=== PATIENT | female | born 1990 | race Caucasian/White ===

== ENCOUNTER 2016-12-12 19:21 | Observation (INO) ==
[2016-12-12 19:56] LABS: Bilirubin,Urine Moderate (Negative); Blood,Urine Moderate (Negative); Clarity,Urine Cloudy (Clear); Color,Urine Orange (Yellow); Glucose,Urine (UA) Normal (Normal); Ketones,Urine Negative (Negative); Leukocyte Esterase,Urine Large (Negative); Nitrite,Urine Negative (Negative); PH,Urine 6.5 pH Units (5.0-8.0); Protein,Urine Negative (Neg-Trace); Specific Gravity,Urine 1.023 (1.010-1.025); Urobilinogen,Urine Normal (Normal)
[2016-12-12 19:58] LABS: Bacteria,Urine Moderate per hpf (None-Few); Hyaline Casts,Urine Few per lpf (None-Few); Squamous Epithelial Cell,Urine Many per lpf (None-Few); WBC,Urine 50-100 per hpf (0-3)
[2016-12-12] MEDS ORDERED: Ketorolac 60 MG/2 ML VIAL IM ONE (20:00)
--- NOTE | 2016-12-12 20:06 | Emergency Department Note ---
Disposition Clinical Impression: Calculus of common bile duct and gallbladder, Total bilirubin, elevated Disposition: Home, Self-Care Condition: Fair Referrals: Bennie Arthur, PAC [Primary Care Provider] - Forms: ED Satisfaction Letter Time of Disposition: 22:15 Abdominal Pain HPI - General Chief Complaint: ED Abdominal Pain Stated Complaint: abd/ back pain Time Seen by Provider: 12/12/16 19:47 Source: patient, family Mode of arrival: private vehicle Limitations: no limitations Nursing Notes Reviewed: Yes Vital Signs Reviewed: Yes - History of Present Illness Pt Subjective Complaint: abdominal pain Onset (ago): hour(s) (Started yesterday) Consistency: constant Location: epigastric (Patient points to the xiphoid process and lower sternum as the location) Pain Severity: moderate Pain Scale: 7 Quality: sharp Radiation: back Migration to: no migration Improves with: nothing Worsens with: other (Deep breaths and movements of the torso dramatically increased the discomfort.) Associated symptoms: Reports: denies other symptoms Treatments prior to arrival: none - Related Data Allergies Allergy/AdvReac Type Severity Reaction Status Date / Time No Known Allergies Allergy Verified 12/12/16 19:29 All systems ED: reviewed and negative except as stated. Constitutional: Denies: fever, chills ENT ED: Denies: ear pain, throat pain, congestion Cardiovascular: Reports: chest pain. Denies: palpitations, dyspnea on exertion Respiratory: Denies: cough, dyspnea Gastrointestinal: Denies: nausea, vomiting, diarrhea Genitourinary: Denies: urgency, dysuria, frequency Musculoskeletal: Reports: back pain Neurological: Denies: headache Abdominal Pain PMH - Past Medical History Medical history: Reports: no medical history Female Surgical History: Reports: other (Patient had a sternotomy for repair of a hole in the heart as a child) Psychiatric history: Reports: no psych history - Social History Smoking status: Never smoker Alcohol use: Reports: none Drug use: Reports: none Physical Exam - General Limitations: no limitations General appearance: alert, in no apparent distress - Head Head exam: atraumatic, normocephalic - Eye Eye exam: Present: normal appearance, PERRL - ENT ENT exam: normal exam, mucous membranes moist, normal external ear exam - Neck Neck exam: Present: normal inspection, full ROM, trachea midline - Chest Chest inspection: Present: normal inspection, symmetric chest wall rise, tenderness (There is tenderness to palpation over the xiphoid process as well as the inferior costal margins bilaterally outward to about the mammary line) - Respiratory Respiratory exam: Present: normal lung sounds bilaterally. Absent: respiratory distress, wheezes - Cardiovascular Cardiovascular exam: Present: regular rate, normal rhythm, normal heart sounds - Abdominal Exam Abdominal exam: Present: soft, Non-Tender, normal bowel sounds - Extremities Exam Extremities exam: Present: normal inspection, full ROM. Absent: pedal edema - Back Exam Back exam: Present: full ROM, tenderness (There is tenderness palpation over the lowest costal spinal junctions bilaterally) - Neurological Exam Neurological exam: Present: alert, oriented X3 - Psychiatric Psychiatric exam: Present: normal affect, normal mood - Skin Skin exam: Present: warm, dry. Absent: rash Course Course Narrative: Patient presents with what she is calling abdominal pain but is actually xiphoid process pain. I think this is really musculoskeletal given the focal tenderness, reproducibility with deep breath and movement of the torso, and tenderness to palpation. The belly exam is completely nontender and benign. However her urine is orange. She denies taking any Pyridium or other agents that might discolor the urine. Because of the atypical urine I am going to do a bit of a workup. I will give her some pain medications and we will check labs and the urinalysis. Disposition will be based on diagnostic results and reevaluation. - Reevaluation(s) Reevaluation #1: That discolored urine turned out to be positive for bilirubin and there is evidence of UTI there is well. More significantly, her LFTs are elevated and her serum bilirubin is up. Her exam did not seem consistent with abdominal tenderness. However I will add an acute hepatitis panel and a gallbladder ultrasound. Time: 21:11 Reevaluation #2: Hepatitis panel was negative but the ultrasound of the gallbladder showed stones and sludge in the gallbladder with the common bile duct dilated to 0.76 and a total bilirubin of 4.5. This most likely represents a common duct stone. I spoke to the surgeon on-call, Dr. Galindo, and he recommended admission to his service for probable MRCP in the morning and removal of the gallbladder. Time: 22:13 - Consultations Consultation #1: Dr. Galindo, surgery - I discussed the case with surgeon on-call. He is going to admit the patient is service for further management. Time: 22:14 Vital Signs Temperature 97.6 F 12/12/16 19:29 Pulse Rate 74 12/12/16 19:29 Respiratory Rate 16 12/12/16 19:29 Blood Pressure 125/86 12/12/16 19:29 O2 Sat by Pulse Oximetry 98 12/12/16 19:29 Temperature 97.6 F 12/12/16 19:29 Pulse Rate 74 12/12/16 19:29 Respiratory Rate 16 12/12/16 19:29 Blood Pressure 125/86 12/12/16 19:29 O2 Sat by Pulse Oximetry 98 12/12/16 19:29 Oxygen Delivery Oxygen Delivery Room Air Abdominal Pain - Lab Data Lab results reviewed: Yes I reviewed the patient's lab results. Result diagrams: 12/12/16 21:00 12/12/16 20:16 Lab Results 12/12/16 12/12/16 12/12/16 Range/Units 19:39 19:39 20:16 WBC (4.3-11.1) K/mcL RBC (3.82-4.97) M/mcL Hgb (11.5-15.4) g/dL Hct (35.3-44.9) % MCV (83.0-100.0) fL MCH (28.0-33.3) pg MCHC (31.6-35.5) g/dL RDW (11.5-14.5) % Plt Count (140-400) K/mcL MPV (9.4-12.4) fL Immature Gran % (0-4) % Seg Neutrophils % % Lymphocytes % % Monocytes % % Eosinophils % % Basophils % % Neutrophils # (1.6-8.9) K/mcL Lymphocytes # (0.6-4.6) K/mcL Monocytes # (0.0-1.3) K/mcL Eosinophils # (0.0-0.6) K/mcL Basophils # (0.0-0.2) K/mcL Platelet Estimate (Normal) Sodium 138 (136-145) mEq/L Potassium 4.5 (3.5-4.5) mEq/L Chloride 107 (98-109) mEq/L Carbon Dioxide 18 L (19-29) mEq/L BUN 10 (7-20) mg/dL Creatinine 0.75 (0.57-1.11) mg/dL Est GFR ( Amer) > 60 (> 60) Est GFR (Non-Af Amer) > 60 (> 60) BUN/Creatinine Ratio 13 (6-26) Glucose 101 H (70-99) mg/dL Calculated Osmolality 285 (280-300) Calcium 9.3 (8.6-10.8) mg/dL Total Bilirubin 4.5 H (0.2-1.2) mg/dL Direct Bilirubin 2.8 H (0.0-0.5) mg/dL Indirect Bilirubin 1.7 H (0.0-1.2) mg/dL AST 131 H (5-34) Units/L ALT 140 H (0-55) Units/L Alkaline Phosphatase 142 H (38-126) Units/L Serum Total Protein 8.4 H (6.0-8.3) g/dL Albumin 3.9 (3.5-5.0) g/dL Globulin 4.5 H (2.4-3.5) g/dL Albumin/Globulin Ratio 0.9 L (1.1-2.2) Lipase 24 (8-78) Units/L Urine Color Sentinel A (Yellow) Urine Clarity Cloudy A (Clear) Urine pH 6.5 (5.0-8.0) pH Units Ur Specific [place] 1.023 (1.010-1.025) Urine Protein Negative (Neg-Trace) mg/dL Urine Glucose (UA) Normal (Normal) mg/dL Urine Ketones Negative (Negative) mg/dL Urine Blood Moderate H (Negative) Urine Nitrite Negative (Negative) Urine Bilirubin Moderate H (Negative) Urine Urobilinogen Normal (Normal) mg/dL Ur Leukocyte Esterase Large H (Negative) Urine Microscopic RBC 5-15 H (0-3) per hpf Urine Microscopic WBC 50-100 H (0-3) per hpf Ur Squamous Epith Cells Many H (None-Few) per lpf Calcium Oxalate Crystal Present Urine Bacteria Moderate H (None-Few) per hpf Hyaline Casts Few (None-Few) per lpf Ur Culture Indicated? YES A (NO) Urine Test Negative (Negative) Hepatitis A IgM Ab (Nonreactive) Hep Bs Antigen (Nonreactive) Hep B Core IgM Ab (Nonreactive) Hepatitis C Ab Screen (Nonreactive) 12/12/16 12/12/16 Range/Units 21:00 21:00 WBC 7.7 (4.3-11.1) K/mcL RBC 5.35 H (3.82-4.97) M/mcL Hgb 13.6 (11.5-15.4) g/dL Hct 42.8 (35.3-44.9) % MCV 80.0 L (83.0-100.0) fL MCH 25.4 L (28.0-33.3) pg MCHC 31.8 (31.6-35.5) g/dL RDW 14.1 (11.5-14.5) % Plt Count 315 (140-400) K/mcL MPV 9.8 (9.4-12.4) fL Immature Gran % 0.8 (0-4) % Seg Neutrophils % 68.9 % Lymphocytes % 23.4 % Monocytes % 4.9 % Eosinophils % 1.0 % Basophils % 1.0 % Neutrophils # 5.3 (1.6-8.9) K/mcL Lymphocytes # 1.8 (0.6-4.6) K/mcL Monocytes # 0.4 (0.0-1.3) K/mcL Eosinophils # 0.1 (0.0-0.6) K/mcL Basophils # 0.1 (0.0-0.2) K/mcL Platelet Estimate Normal (Normal) Sodium (136-145) mEq/L Potassium (3.5-4.5) mEq/L Chloride (98-109) mEq/L Carbon Dioxide (19-29) mEq/L BUN (7-20) mg/dL Creatinine (0.57-1.11) mg/dL Est GFR ( Amer) (> 60) Est GFR (Non-Af Amer) (> 60) BUN/Creatinine Ratio (6-26) Glucose (70-99) mg/dL Calculated Osmolality (280-300) Calcium (8.6-10.8) mg/dL Total Bilirubin (0.2-1.2) mg/dL Direct Bilirubin (0.0-0.5) mg/dL Indirect Bilirubin (0.0-1.2) mg/dL AST (5-34) Units/L ALT (0-55) Units/L Alkaline Phosphatase (38-126) Units/L Serum Total Protein (6.0-8.3) g/dL Albumin (3.5-5.0) g/dL Globulin (2.4-3.5) g/dL Albumin/Globulin Ratio (1.1-2.2) Lipase (8-78) Units/L Urine Color (Yellow) Urine Clarity (Clear) Urine pH (5.0-8.0) pH Units Ur Specific [place] (1.010-1.025) Urine Protein (Neg-Trace) mg/dL Urine Glucose (UA) (Normal) mg/dL Urine Ketones (Negative) mg/dL Urine Blood (Negative) Urine Nitrite (Negative) Urine Bilirubin (Negative) Urine Urobilinogen (Normal) mg/dL Ur Leukocyte Esterase (Negative) Urine Microscopic RBC (0-3) per hpf Urine Microscopic WBC (0-3) per hpf Ur Squamous Epith Cells (None-Few) per lpf Calcium Oxalate Crystal Urine Bacteria (None-Few) per hpf Hyaline Casts (None-Few) per lpf Ur Culture Indicated? (NO) Urine Test (Negative) Hepatitis A IgM Ab Nonreactive (Nonreactive) Hep Bs Antigen Nonreactive (Nonreactive) Hep B Core IgM Ab Nonreactive (Nonreactive) Hepatitis C Ab Screen Nonreactive (Nonreactive) - Radiology Data Radiology results reviewed: Yes I reviewed the patient's radiology results.
[2016-12-12 20:20] LABS: Calcium Oxalate Crystals,Urine Present
[2016-12-12 20:43] LABS: Alanine Aminotransferase 140 Units/L (0-55); Albumin 3.9 g/dL (3.5-5.0); Albumin/Globulin Ratio 0.9 (1.1-2.2); Alkaline Phosphatase 142 Units/L (38-126); Aspartate Amino Transferase 131 Units/L (5-34); BUN/Creatinine Ratio 13 (6-26); Bilirubin,Direct 2.8 mg/dL (0.0-0.5); Bilirubin,Indirect 1.7 mg/dL (0.0-1.2); Bilirubin,Total 4.5 mg/dL (0.2-1.2); Blood Urea Nitrogen 10 mg/dL (7-20); Calcium 9.3 mg/dL (8.6-10.8); Carbon Dioxide 18 mEq/L (19-29); Chloride 107 mEq/L (98-109); Globulin 4.5 g/dL (2.4-3.5); Glucose 101 mg/dL (70-99); Lipase 24 Units/L (8-78); Osmolality,Calculated 285 (280-300); Potassium 4.5 mEq/L (3.5-4.5); Sodium 138 mEq/L (136-145); Total Protein 8.4 g/dL (6.0-8.3); eGFR For African Americans > 60 (> 60); eGFR For Non-African Americans > 60 (> 60)
[2016-12-12 21:15] LABS: Basophils # 0.1 K/mcL (0.0-0.2); Eosinophils # 0.1 K/mcL (0.0-0.6); Hematocrit 42.8 % (35.3-44.9); Hemoglobin 13.6 g/dL (11.5-15.4); Immature Granulocytes % 0.8 % (0-4); Lymphocytes # 1.8 K/mcL (0.6-4.6); Lymphocytes % 23.4 %; Mean Corpuscular HGB Conc 31.8 g/dL (31.6-35.5); Mean Corpuscular Hemoglobin 25.4 pg (28.0-33.3); Mean Platelet Volume 9.8 fL (9.4-12.4); Monocytes # 0.4 K/mcL (0.0-1.3); Monocytes % 4.9 %; Neutrophils # 5.3 K/mcL (1.6-8.9); Platelet Count 315 K/mcL (140-400); Red Blood Count 5.35 M/mcL (3.82-4.97); Red Cell Distribution Width 14.1 % (11.5-14.5); Segmented Neutrophils % 68.9 %
[2016-12-12 21:36] LABS: Platelet Estimate Normal (Normal)
[2016-12-12 21:53] LABS: Hepatitis A Antibody IgM Nonreactive (Nonreactive); Hepatitis B Core IgM Nonreactive (Nonreactive); Hepatitis B Surface Antigen Nonreactive (Nonreactive); Hepatitis C Virus Antibody Nonreactive (Nonreactive)
[2016-12-13] MEDS ORDERED: *HR* Morphine 2 MG/ML SYRINGE IVP PRN (00:10)
[2016-12-13] MEDS ORDERED: 0.9 % Sodium Chloride 1,000 ML IVC SCH (00:15)
[2016-12-13 01:19] LABS: Alanine Aminotransferase 131 Units/L (0-55); Albumin 3.5 g/dL (3.5-5.0); Albumin/Globulin Ratio 0.8 (1.1-2.2); Alkaline Phosphatase 133 Units/L (38-126); Aspartate Amino Transferase 116 Units/L (5-34); BUN/Creatinine Ratio 16 (6-26); Bilirubin,Total 3.5 mg/dL (0.2-1.2); Blood Urea Nitrogen 13 mg/dL (7-20); Calcium 8.9 mg/dL (8.6-10.8); Carbon Dioxide 20 mEq/L (19-29); Chloride 109 mEq/L (98-109); Globulin 4.2 g/dL (2.4-3.5); Glucose 94 mg/dL (70-99); Osmolality,Calculated 292 (280-300); Sodium 141 mEq/L (136-145); Total Protein 7.7 g/dL (6.0-8.3); eGFR For African Americans > 60 (> 60); eGFR For Non-African Americans > 60 (> 60)
[2016-12-13 01:21] LABS: Potassium 4.4 mEq/L (3.5-4.5)
[2016-12-13] MEDS: Ondansetron 4 MG/2 ML VIAL IVP SCH ×2 (07:26→11:38)
--- NOTE | 2016-12-13 10:10 | General Surg History&Physical ---
Date of Encounter: 12/13/16 Time of Encounter: 10:09 Assessment and Plan (1) Symptomatic cholelithiasis Current Visit: Yes Status: Acute The assessment and plan as outlined above was discussed with the patient and/or family members who expressed understanding and agreement. All questions were answered. Gallbladder ultrasound demonstrated: Cholelithiasis with sludge. There was no evidence of gallbladder wall thickening. The CBD was dilated. MRCP: Innumerable gallstones without MRI evidence of acute cholecystitis. No intra or extahepatic biliary dilatation. No choledocholithiasis. Incidental note is made of a low insertion of the cystic duct to the common bile duct. Continue pain control. Continue nausea control. Clear liquid diet. Ambulate TID for DVT prophylaxis. Will schedule the patient for outpatient laparoscopic cholecystectomy. (2) Total bilirubin, elevated Current Visit: Yes Status: Acute The assessment and plan as outlined above was discussed with the patient and/or family members who expressed understanding and agreement. All questions were answered. Trending down today. 4.5 > 3.5 today. Continue to monitor. History of Present Illness Chief complaint: abdominal pain and back pain HPI: Ms. Stanley is a 26 year old female with no significant medical history who presented to the [place] emergency department for worsening abdominal pain. She noted that the pain started on Saturday12/11/16 and was described as sharp when she was reaching up on a shelf at work. The pain is epigastric and in the RUQ and radiates to the right flank. She states she has never had anything like this before. She thought it could possibly be reflux and she took some of her grandma's reflux prescription medication with minimal relief. She noted that her pain was worse after meals. She states she did not eat anything since yesterday morning to to fear of the pain recurring. She reports a remote history of diarrhea 2 weeks ago and denies any bowel movements since that time. She continues to have flatus. She denies nausea, vomiting and fevers. In the emergency department she had a RUQ ultrasound which showed cholelithiasis with sludge. There was no evidence of gallbladder wall thickening. The CBD was dilated. Past Med Surg Social Fam HX - Past Medical History Medical history: no medical history Psychiatric history: no psych history - Past Surgical History Surgical History: orthopedic, other (right knee ACL repair), other (Open heart surgery at 9 months of age for septal defect repair) - Social History Smoking Status: Never smoker Smokeless Tobacco Status: No Alcohol use: none Drug use: none - Family History Mother Hx Family Endocrine Disorder: Yes (DM2, Hypothyroid) Maternal Grandmother Living Status: Hx Family Cardiac Disorders: Yes (CT) Father Hx Family Endocrine Disorder: Yes (DM2) Medications and Allergies Norgestimate-Ethinyl Estradiol [Sprintec 28 Day Tablet] 1 each PO DAILY [History] Allergies No Known Allergies Allergy (Verified 12/12/16 19:29) Review of Systems All systems PM: A 10-system review of systems was performed and is negative for pertinent findings except as documented above in the HPI. - Constitutional anorexia, no chills, no fatigue, no fever(s), no headache(s) - EENT Nose, mouth and throat: no dysphagia - Cardiovascular no chest pain, no dyspnea - Respiratory no dyspnea - Gastrointestinal abdominal pain, no heartburn, no hematochezia, no melena, no nausea, no vomiting - Genitourinary Genitourinary: no difficulty urinating, no dysuria - Integumentary no pruritus, no rash - Neurological no numbness, no paresthesias, no tingling, no weakness - Hematologic/Lymphatic no easy bleeding, no easy bruising General Surgery Exam Initial Vital Signs Temp Pulse Resp BP Pulse Ox 97.6 F 74 16 125/86 98 12/12/16 19:29 12/12/16 19:29 12/12/16 19:29 12/12/16 19:29 12/12/16 19:29 - General physical appearance well developed, well nourished, no distress - Eyes normal ocular movement - ENT normal mucosa, atraumatic, normocephalic - Neck trachea midline - Respiratory normal respiratory effort, clear to auscultation - Cardiovascular Cardiovascular exam: Present: RRR, no murmurs/rubs/gallops - Abdomen Abdomen general surgery: Present: bowel sounds present, soft Abdominal Tenderness: Present: RUQ (some discomfort with deep palpation) - Integumentary Integumentary general surgery: Present: warm and dry - Neurologic Present: CN 2-12 grossly intact - Musculoskeletal Present: normal posture - Psychiatric Psychiatric general surgery: Present: appropriate, oriented to person, oriented to place, oriented to time, speech is normal, memory intact Results - Labs 12/12/16 21:00 12/13/16 00:56 Abnormal lab results RBC 5.35 M/mcL (3.82-4.97) H 12/12/16 21:00 MCV 80.0 fL (83.0-100.0) L 12/12/16 21:00 MCH 25.4 pg (28.0-33.3) L 12/12/16 21:00 Total Bilirubin 3.5 mg/dL (0.2-1.2) H 12/13/16 00:56 Direct Bilirubin 2.8 mg/dL (0.0-0.5) H 12/12/16 20:16 Indirect Bilirubin 1.7 mg/dL (0.0-1.2) H 12/12/16 20:16 AST 116 Units/L (5-34) H 12/13/16 00:56 ALT 131 Units/L (0-55) H 12/13/16 00:56 Alkaline Phosphatase 133 Units/L (38-126) H 12/13/16 00:56 Globulin 4.2 g/dL (2.4-3.5) H 12/13/16 00:56 Albumin/Globulin Ratio 0.8 (1.1-2.2) L 12/13/16 00:56 Urine Color [place] (Yellow) A 12/12/16 19:39 Urine Clarity Cloudy (Clear) A 12/12/16 19:39 Urine Blood Moderate (Negative) H 12/12/16 19:39 Urine Bilirubin Moderate (Negative) H 12/12/16 19:39 Ur Leukocyte Esterase Large (Negative) H 12/12/16 19:39 Urine Microscopic RBC 5-15 per hpf (0-3) H 12/12/16 19:39 Urine Microscopic WBC 50-100 per hpf (0-3) H 12/12/16 19:39 Ur Squamous Epith Cells Many per lpf (None-Few) H 12/12/16 19:39 Urine Bacteria Moderate per hpf (None-Few) H 12/12/16 19:39 Ur Culture Indicated? YES (NO) A 12/12/16 19:39 Diabetes panel 12/13/16 Range/Units 00:56 Sodium 141 (136-145) mEq/L Potassium 4.4 (3.5-4.5) mEq/L Chloride 109 (98-109) mEq/L Carbon Dioxide 20 (19-29) mEq/L BUN 13 (7-20) mg/dL Creatinine 0.82 (0.57-1.11) mg/dL Glucose 94 (70-99) mg/dL Calcium 8.9 (8.6-10.8) mg/dL AST 116 H (5-34) Units/L ALT 131 H (0-55) Units/L Alkaline Phosphatase 133 H (38-126) Units/L Albumin 3.5 (3.5-5.0) g/dL Calcium panel 12/13/16 Range/Units 00:56 Calcium 8.9 (8.6-10.8) mg/dL Albumin 3.5 (3.5-5.0) g/dL Pituitary panel 12/13/16 Range/Units 00:56 Sodium 141 (136-145) mEq/L Potassium 4.4 (3.5-4.5) mEq/L Chloride 109 (98-109) mEq/L Carbon Dioxide 20 (19-29) mEq/L BUN 13 (7-20) mg/dL Creatinine 0.82 (0.57-1.11) mg/dL Glucose 94 (70-99) mg/dL Calcium 8.9 (8.6-10.8) mg/dL Adrenal panel 12/13/16 Range/Units 00:56 Sodium 141 (136-145) mEq/L Potassium 4.4 (3.5-4.5) mEq/L Chloride 109 (98-109) mEq/L Carbon Dioxide 20 (19-29) mEq/L BUN 13 (7-20) mg/dL Creatinine 0.82 (0.57-1.11) mg/dL Glucose 94 (70-99) mg/dL Calcium 8.9 (8.6-10.8) mg/dL Total Bilirubin 3.5 H (0.2-1.2) mg/dL AST 116 H (5-34) Units/L ALT 131 H (0-55) Units/L Alkaline Phosphatase 133 H (38-126) Units/L Albumin 3.5 (3.5-5.0) g/dL All other labs normal. - Attending Attestation I examined this patient and my medical decision-making was reviewed with the RAIL CAR REPAIRMAN/PA/Advanced Practice Nurse/Resident Physician. I agree with the documented findings, disposition and treatment plan as described except to the extent set forth below.
[2016-12-13 10:38] VITALS: BP 107/72
[2016-12-13] MEDS ORDERED: Naloxone 0.4 MG/ML INJ IVP PRN (11:49)
--- NOTE | 2016-12-13 13:47 | Discharge Summary ---
Date of Encounter: 12/13/16 Time of Encounter: 13:40 - Discharge Diagnosis (1) Symptomatic cholelithiasis Priority: Primary Status: Resolved (2) Total bilirubin, elevated Priority: Primary Status: Acute Comments: Improving MRCP negative for choledocholithiasis - Discharge Medications Home Medications: Norgestimate-Ethinyl Estradiol [Sprintec 28 Day Tablet] 1 each PO DAILY [History] Allergies/Adverse Reactions: Allergies No Known Allergies Allergy (Verified 12/12/16 19:29) General Surgery Exam Initial Vital Signs Temp Pulse Resp BP Pulse Ox 97.6 F 74 16 125/86 98 12/12/16 19:29 12/12/16 19:29 12/12/16 19:29 12/12/16 19:29 12/12/16 19:29 - General physical appearance well developed, well nourished, no distress, no pain - Eyes normal ocular movement - ENT normal mucosa, atraumatic, normocephalic - Neck trachea midline - Respiratory normal expansion, normal respiratory effort, clear to auscultation - Cardiovascular Cardiovascular exam: Present: RRR, 15, 16 - Abdomen Abdomen general surgery: Present: bowel sounds present, soft, non tender - Integumentary Integumentary general surgery: Present: warm and dry, no abnormal pigmentation - Neurologic Present: CN 2-12 grossly intact - Musculoskeletal Present: normal gait, normal posture - Psychiatric Psychiatric general surgery: Present: appropriate, oriented to person, oriented to place, oriented to time, speech is normal, memory intact Date of admission: 12/12/16 22:37 Primary care physician: Bennie Arthur [facility] Anticipated date of discharge: 12/13/16 - Patient Status Disposition: Home, Self-Care Condition: Good Functional capacity at discharge: independent ambulation Overall status at discharge: patient is progressing back to baseline - Discharge Instructions Follow Up With: Bennie Arthur, RYNE [Primary Care Provider] - Triston Singh DO [Partnered Physician] - (Patient will follow-up 2 weeks post -op (surgery office will schedule when surgery date confirmed)) - Diet and Activity Activity: increase activity as tolerated Diet: low fat, low cholesterol, other - Hospital Course Hospital course: Ms. Stanley is a 26 year old female who presented to the ED with acute onset of epigastric and RUQ abdominal pain. She did have mildly elevated LFTs and an elevated bilirubin level. US was negative for cholecystitis but did show cholelithiasis and sludge. MRCP was complete and shows now evidence of choledocholithiasis. The patient's bilirubin is improving today. Her abdominal pain has resolved. She is tolerating liquids without nausea/vomiting or recurrence of pain. The patient has decided to proceed with elective cholecystectomy in the next couple of weeks with Dr. Singh. Will begin discharge planning at this time. - Time Spent with Patient Total time spent providing and/or coordinating discharge services: Less than 30 minutes Labs on day of discharge: Labs from last 24 hours 12/13/16 00:56 Sodium 141 Potassium 4.4 Chloride 109 Carbon Dioxide 20 BUN 13 Creatinine 0.82 Est GFR ( Amer) > 60 Est GFR (Non-Af Amer) > 60 BUN/Creatinine Ratio 16 Glucose 94 Calculated Osmolality 292 Calcium 8.9 Total Bilirubin 3.5 H AST 116 H ALT 131 H Alkaline Phosphatase 133 H Serum Total Protein 7.7 Albumin 3.5 Globulin 4.2 H Albumin/Globulin Ratio 0.8 L - Impressions ITS Impressions Abdomen MRI 12/13/16 07:16 IMPRESSION: 1. Innumerable gallstones without MRI evidence of acute cholecystitis. 2. No intra or extrahepatic biliary dilatation. No choledocholithiasis. Incidental note is made of a low insertion of the cystic duct to the common bile duct. D/ / 12/13/2016 10:02:10 Eliza Gordillo MD / [email or web address] Interpreting Provider: Eliza Gordillo MD - Attending Attestation I examined this patient and my medical decision-making was reviewed with the TUBE BLOWER/PA/Advanced Practice Nurse/Resident Physician. I agree with the documented findings, disposition and treatment plan as described except to the extent set forth below.
== END 2016-12-13 15:12 | disposition home or self-care (01) ==
LOC: EMEROO 19:21 → 3BNU 19:21
PROVIDERS: ADMIT Surgery; ATTEND Surgery